=== PATIENT | male | born 2000 | race Two or more races ===

== ENCOUNTER 2019-02-01 16:16 | Emergency (ER) | payer OTHER ==
[~2019-02-01] VITALS: Ht 172.7 cm; Wt 85.0 kg
[2019-02-01 16:47] VITALS: BP 141/82
[2019-02-01] MEDS ORDERED: BACITRACIN 15GM TUBE TOP ONE (18:15)
[2019-02-01] MEDS ORDERED: IBUPROFEN 600MG TABLET PO ONE (18:15)
== END 2019-02-01 19:24 | disposition home or self-care (01) ==
LOC: ER 16:16
DX: S20.211A Contusion of right front wall of thorax, initial encounter (principal); S60.511A Abrasion of right hand, initial encounter; S80.811A Abrasion, right lower leg, initial encounter; V29.88XA Motorcycle rider (driver) (passenger) injured in other specified transport accidents, initial encounter; Y93.89 Activity, other specified; Y92.89 Other specified places as the place of occurrence of the external cause; Y99.8 Other external cause status
CPT/HCPCS: 71045; 99283

== ENCOUNTER 2020-02-29 19:35 | Emergency (ER) | payer OTHER, MEDICAID ==
[~2020-02-29] VITALS: Ht 177.8 cm; Wt 73.0 kg
[2020-02-29] MEDS ORDERED: TETANUS, DIPHTHERIA, PERTUSSIS VAC/PF 0.5ML (>7YR OLD) IM ONE (20:15)
[2020-02-29] MEDS ORDERED: HYDROCODONE/ACETAMINOPHEN 5/325MG TABLET PO ONE (20:15)
[2020-02-29] MEDS ORDERED: IBUPROFEN 600MG TABLET PO ONE (20:15)
[2020-02-29] MEDS ORDERED: BACITRACIN ZINC OINT UDPKT TOP ONE (21:30)
[2020-02-29 22:01] VITALS: BP 126/81
== END 2020-02-29 22:02 | disposition home or self-care (01) ==
LOC: ER 19:35
DX: S80.211A Abrasion, right knee, initial encounter (principal); S70.211A Abrasion, right hip, initial encounter; S70.311A Abrasion, right thigh, initial encounter; V29.40XA Motorcycle driver injured in collision with unspecified motor vehicles in traffic accident, initial encounter; Y93.89 Activity, other specified; Y92.488 Other paved roadways as the place of occurrence of the external cause; Z23 Encounter for immunization
CPT/HCPCS: 73502; 73552; 73562; 90471; 90715; 99284; Z7610